=== PATIENT | female | born 1965 | race Caucasian/White ===

== ENCOUNTER 2018-06-21 06:21 | Emergency (ER) | payer OTHER ==
[~2018-06-21] VITALS: Ht 165.1 cm; Wt 69.9 kg
[~2018-06-21 06:21] MED LIST: AMBIEN CR6.25 MG PO; AUGMENTIN875 MG PO; BACLOFEN10 MG PO; BUSPAR10 MG PO; CELEBREX200 MG PO; CLONIDINE HCL0.1 MG PO; DIFLUCAN150 MG PO; DURAGESIC12 MCG TD; EFFEXOR XR150 MG PO; FENTANYL1 EAC3 TD; FLONASE16 G1 BOTH NARES; GABAPENTIN300 MG PO; KLONOPIN0.5 M1 PO; METHOCARBAMOL750 MG PO; METOCLOPRAMIDE H5 MG PO; OXYCODONE HCL15 MG PO; PANTOPRAZOLE SO40 MG PO; PROPRANOLOL HCL60 MG PO; SUBOXONE 8 MG-1 EAC2 SL; SUMATRIPTAN SU100 MG PO; TRAZODONE HCL50 MG PO; ZOFRAN ODT4 MG PO
[2018-06-21 07:13] LABS: BASOPHIL (%) 0.8 % (0-1); BASOPHIL COUNT 0.1 K/uL (0-0.1); EOSINOPHIL COUNT 0.3 K/uL (0-0.3); HEMATOCRIT 39.4 % (36.0-46.0); HEMOGLOBIN 12.6 G/DL (11.9-15.5); IMMATURE GRANULOCYTE (%) 0.3 % (0.0-0.7); LYMPHOCYTE (%) 28.8 % (15-42); LYMPHOCYTE COUNT 2.6 K/uL (1.0-2.8); MCH 29.8 PG (29.0-34.0); MCV 93.1 FL (83-99); MONOCYTE (%) 7.3 % (3-12); MONOCYTE COUNT 0.7 K/uL (0-0.8); NEUTROPHIL (%) 59.8 % (45-76); NEUTROPHIL COUNT 5.4 K/uL (1.8-6.4); PLATELET COUNT 275 K/uL (156-360); RBC DIS.WIDTH-CV 15.5 % (11.8-14.6); RBC DIS.WIDTH-SD 52.4 % (39-53); RED BLOOD COUNT 4.23 M/uL (3.80-5.20)
[2018-06-21 08:05] LABS: ALBUMIN 4.2 G/DL (3.2-4.8); ALKALINE PHOSPHATASE 61 IU/L (3-129); ALT (GPT) 18 IU/L (3-49); AST (GOT) 17 IU/L (2-34); CHLORIDE 104 MEQ/L (99-109); CREATININE 0.7 MG/DL (0.6-1.3); GFR ESTIMATE (CALCULATED) > 59 mL/min/; GLUCOSE 90 mg/dL (70-99); LIPASE 34 U/L (1.0-51.0); POTASSIUM 4.3 MEQ/L (3.7-5.4); SODIUM 136 MEQ/L (136-147); TOTAL BILIRUBIN 0.2 MG/DL (0.0-1.0); TOTAL PROTEIN 6.5 G/DL (6.4-8.3); UREA NITROGEN (BUN) 30 mg/dL (9-23)
[2018-06-21] MEDS ORDERED: BENTYL20 MG PO (11:51)
[2018-06-21 12:06] VITALS: BP 109/71
== END 2018-06-21 12:29 | disposition home or self-care (01) ==
LOC: EME 06:21
PROVIDERS: Emergency Medicine
DX: K59.00 Constipation, unspecified (principal); K44.9 Diaphragmatic hernia without obstruction or gangrene; K76.0 Fatty (change of) liver, not elsewhere classified; M79.7 Fibromyalgia; G43.909 Migraine, unspecified, not intractable, without status migrainosus; Z90.49 Acquired absence of other specified parts of digestive tract; Z88.1 Allergy status to other antibiotic agents; Z88.8 Allergy status to other drugs, medicaments and biological substances
CPT/HCPCS: 74022; 74177; 80053; 83690; 85025; 87493; 99281; 99284; J1885; J2270; J2405; J3010; J7030